=== PATIENT | male | born 1995 | race American Indian/Alaskan Native ===

== ENCOUNTER 2018-03-14 06:56 | Emergency (ER) | payer SELFPAY ==
[2018-03-14 07:05] VITALS: BP 131/72; RESP 16; TEMP 98; O2SAT 98
--- NOTE | 2018-03-14 07:11 | ED PDOC ---
HPI: General Adult Time Seen by Provider: 03/14/18 07:01 Chief Complaint (Nursing): Medical Clearance History Per: EMS Onset/Duration Of Symptoms: Unknown Additional Complaint(s): Brought by EMS, [place] Police tried to wake him and then called EMS. C/o generalized body aches. Past Medical History Reviewed: Unable To Obtain Vital Signs: Last Vital Signs Temp 98 F 03/14/18 07:03 Pulse 52 L 03/14/18 07:03 Resp 16 03/14/18 07:03 BP 131/72 03/14/18 07:03 Pulse Ox 98 03/14/18 07:11 - Family History Family History: States: Unknown Family Hx - Home Medications Home Medications: Ambulatory Orders Medication Instructions Recorded Ibuprofen [Motrin] 600 mg PO Q8 #12 tab 03/14/18 - Allergies Allergies/Adverse Reactions: Allergies Allergy/AdvReac Type Severity Reaction Status Date / Time No Known Allergies Allergy Verified 03/14/18 07:05 Review of Systems Constitutional: Positive for: Malaise. Negative for: Fever Physical Exam - Physical Exam Appears: Positive for: Non-toxic, No Acute Distress Skin: Positive for: Normal Color, Warm, DRY Cardiovascular/Chest: Positive for: Regular Rate, Rhythm Respiratory: Positive for: CNT, Normal Breath Sounds Neurologic/Psych: Positive for: Other (Sleepy, arousable, no focal neuro deficits) - ECG O2 Sat by Pulse Oximetry: 98 Disposition - Clinical Impression Clinical Impression: Myalgia - Patient ED Disposition Is Patient to be Admitted: No Counseled Patient/Family Regarding: Diagnosis, Need For Followup, Rx Given - Disposition Referrals: [facility] [Outside] Disposition: Routine/Home Disposition Time: 07:38 Condition: FAIR Prescriptions: Ibuprofen [Motrin] 600 mg PO Q8 #12 tab Instructions: General (DC), Muscle and Bone Pain (DC) Forms: [employer] ([employer])
[2018-03-14 08:33] VITALS: PULSE 63
== END 2018-03-14 08:33 | disposition home or self-care (01) ==
LOC: H.ER 06:56
DX: M79.1 Myalgia (principal)